=== PATIENT | male | born 1995 | race American Indian/Alaskan Native ===

== ENCOUNTER 2016-07-05 11:14 | Emergency (ER) | payer SELFPAY ==
[2016-07-05 11:37] VITALS: BP 117/74
--- NOTE | 2016-07-05 14:43 | Emergency Department Report ---
[facility] Chief Complaint: Eye Problems Stated Complaint: RASH/POSS PINK EYE Time Seen by Provider: 07/05/16 14:35 Duration: Today Side: Right Severity: mild Symptoms: Yes Eye Itching, Yes Eye Redness, Yes Eye Pain, No Mucous Drainage, No Purulent Drainage, No Blurred Vision, No Preceding URI, No H/O Allergic Rhinitis, No Trauma, No Fever, No Headache Other History: 20-year-old male past medical history HIV not currently taking his HIV medicines, has been off of his medicines for 1 year presents with complaint of 2 days of right eye discharge and irritation no blurry vision no fever no chills no URI symptoms reported. Also states that he has developed purple lesions on his feet for the last approximately 6-8 months bilaterally. Patient states he was on Truvada and 2 other HIV medicines but cannot recall if they were. Has not had a CD4 count and viral load checked in over one year. ED Review of Systems ROS: Stated complaint: RASH/POSS PINK EYE Other details as noted in HPI Constitutional: denies: chills, fever Eyes: denies: eye pain, eye discharge, vision change ENT: denies: ear pain, throat pain Respiratory: denies: cough, shortness of breath, wheezing Cardiovascular: denies: chest pain, palpitations Endocrine: no symptoms reported Gastrointestinal: denies: abdominal pain, nausea, diarrhea Genitourinary: denies: urgency, dysuria Musculoskeletal: denies: back pain, joint swelling, arthralgia Skin: denies: rash, lesions Neurological: denies: headache, weakness, paresthesias Psychiatric: denies: anxiety, depression Hematological/Lymphatic: denies: easy bleeding, easy bruising ED Past Medical Hx - Past Medical History Previous Medical History?: No - Surgical History Past Surgical History?: No - Social History Smoking Status: Former Smoker Substance Use Type: None - Medications Home Medications: Home Medications Medication Instructions Recorded Confirmed Last Taken Type Ibuprofen [Motrin] 400 mg PO Q8H PRN #30 tablet 07/05/16 Unknown Rx Loratadine [Claritin] 10 mg PO DAILY PRN #30 tablet 07/05/16 Unknown Rx Polyvinyl Alcohol/Povidone 1 - 2 drop OP PRN PRN #1 bottle 07/05/16 Unknown Rx [Artificial Tears Drops 0.5/0.6 %] Tobramycin 0.3% [Tobrex] 1 drop OU Q4H #1 bottle 07/05/16 Unknown Rx [facility] Exam - Exam General: Vital signs noted. No distress. Alert and acting appropriately. Eye Exam: Right Injection, Right Chemosis, Neither Abnormal Pupil, Neither EOMI , Neither Eye Foreign Body, Neither Lid Foreign Body, Neither Mucous Discharge ( no mucoid discharge reported by patient), Neither Purulent Discharge HEENT: No Nasal Congestion, No Pharyngeal Erythema Remainder of HEENT: Normal Exam: General: Well appearing, well nourished, in no distress. Oriented x 3, normal mood and affect . Ambulating without difficulty. 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 Head: Normocephalic, atraumatic, no visible or palpable masses, depressions, or scaring. Eyes: Visual acuity intact, right sided conjunctival injection, no visible mucoid discharge slightly watery discharge, sclera non-icteric, EOM intact, PERRLA. Ears: EACs clear, TMs translucent & mobile, ossicles nl appearance, hearing intact. Nose: No external lesions, mucosa non-inflamed, septum and turbinates normal. Mouth: Mucous membranes moist, no mucosal lesions. Pharynx: Mucosa non-inflamed, no tonsillar hypertrophy or exudate. Neck: Supple, without lesions, bruits, or adenopathy, thyroid non-enlarged and non-tender. Heart: No cardiomegaly or thrills; regular rate and rhythm, no murmur or gallop. Lungs: Clear to auscultation and percussion. Abdomen: Bowel sounds normal, no tenderness, organomegaly, masses, or hernia. Back: Spine normal without deformity or tenderness, no CVA tenderness. Extremities: No amputations or deformities, cyanosis, edema or varicosities, peripheral pulses. intact. Musculoskeletal: Normal gait and station. No misalignment, asymmetry , crepitation, defects,tenderness, masses, effusions, decreased range of motion , instability, atrophy or abnormal. strength or tone in the head, neck, spine, ribs, pelvis or extremities. Neurologic: CN 2-12 normal. Sensation to pain, touch, and proprioception normal. DTRs normal in upper and lower extremities. No pathologic reflexes. Psychiatric: Oriented X3, intact recent and remote memory, judgment and insight, normal moodand affect. 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 I educated patient on the importance of restarting his HIV regimen and having continuity of care and outpatient basis for his HIV and HIV related issues. I explained to patient the importance of knowing his viral load and CD4 count and having an infectious disease specialist follow-up with him. Patient expressed clear understanding and agreement of this plan. 2-treat patient empirically for conjunctivitis with tobramycin drops, Motrin and Claritin for pain and itchin fit. Vision is 20/20 both eyes and each individually. Critical care attestation.: If time is entered above; I have spent that time in minutes in the direct care of this critically ill patient, excluding procedure time. ED Disposition Clinical Impression: Kaposis sarcoma Conjunctivitis of right eye Qualifiers: Conjunctivitis type: acute Acute conjunctivitis type: unspecified Qualified Code(s): H10.31 - Unspecified acute conjunctivitis, right eye Disposition: DISCHARGED TO HOME OR SELFCARE Is pt being admited?: No Does the pt Need Aspirin: No Condition: Stable Instructions: Kaposi's Sarcoma (ED), Conjunctivitis (ED) Prescriptions: Ibuprofen [Motrin] 400 mg PO Q8H PRN #30 tablet PRN Reason: Pain Loratadine [Claritin] 10 mg PO DAILY PRN #30 tablet PRN Reason: Itching Polyvinyl Alcohol/Povidone [Artificial Tears Drops 0.5/0.6 %] 1 - 2 drop OP PRN PRN #1 bottle PRN Reason: Dry Eye(S) Tobramycin 0.3% [Tobrex] 1 drop OU Q4H #1 bottle Referrals: DARREL JACOBS MD [Staff Physician] - 3-5 Days DENNYS ANDERSON MD [Staff Physician] - 3-5 Days [facility] [Outside] - 3-5 Days [facility] [Outside] - 3-5 Days Forms: Work/School Release Form(ED) Time of Disposition: 15:26
== END 2016-07-05 15:51 | disposition home or self-care (01) ==
LOC: ED 11:14
DX: H10.31 Unspecified acute conjunctivitis, right eye (principal); C46.9 Kaposi's sarcoma, unspecified; Z87.891 Personal history of nicotine dependence
CPT/HCPCS: 99282